=== PATIENT | male | born 1985 | race Two or more races ===

== ENCOUNTER 2016-05-15 12:11 | Emergency (ER) | payer MEDICAID ==
--- NOTE | 2016-05-15 12:17 | ER Document Report ---
ED Medical Screen (RME) - General Stated Complaint: HEADACHE Time seen by provider: 12:27 Mode of Arrival: Medic Information source: Patient Notes: 30-year-old male found on the side of the road with a headache for 4 days brought in by EMS. Patient complains of nausea vomiting for 4 days 3 times today. I have greeted and performed a rapid initial assessment of this patient. A comprehensive ED assessment and evaluation of the patient, analysis of test results and completion of medical decision making process will be conducted by an additional ED providers. TRAVEL OUTSIDE OF THE [place] IN LAST 30 DAYS: No - Related Data Allergies/Adverse Reactions: No Known Allergies Allergy (Verified 08/18/14 14:53) Past Medical History Pulmonary Medical History: Reports: Hx Bronchitis Psychiatric Medical History: Reports: Hx Bipolar Disorder, Hx Depression, Hx Schizophrenia - Immunizations Hx Diphtheria, Pertussis, Tetanus Vaccination: Yes - 2009
[2016-05-15] MEDS ORDERED: ACETAMINOPHEN 325 MG TABLET PO ONE (12:29)
[2016-05-15] MEDS ORDERED: ONDANSETRON 4 MG TAB.RAPDIS PO ONE (12:29)
[2016-05-15] MEDS ORDERED: DIPHENHYDRAMINE HCL 50 MG/ML VIAL IV ONE (14:49)
[2016-05-15] MEDS ORDERED: NORMAL SALINE 1000 ML 1,000 ML IV ONE (14:49)
[2016-05-15] MEDS ORDERED: KETOROLAC TROMETHAMINE INJ/PF 30 MG/1 ML SDV IV ONE (14:50)
--- NOTE | 2016-05-15 15:46 | ER Document Report ---
ED General - General Chief Complaint: Headache Stated Complaint: HEADACHE Time seen by provider: 15:45 Mode of Arrival: Medic Notes: This is a 30-year-old male that presents today with a frontal bilateral headache. Patient stated that it started at 1130 this morning. He vomited 3 times. Denies hematemesis. He decided to call EMS. Constant 6 out of 10 with radiation to the neck. Denies nausea fever light sensitivity or loss of consciousness. He states that he has not had symptoms like this in the past. TRAVEL OUTSIDE OF THE [place] IN LAST 30 DAYS: No - Related Data Allergies/Adverse Reactions: No Known Allergies Allergy (Verified 05/15/16 12:29) Past Medical History - General Information source: Patient - Social History Smoking Status: Current Every Day Smoker Chew tobacco use (# tins/day): No Frequency of alcohol use: None Drug Abuse: None Family History: Reviewed & Not Pertinent Patient has suicidal ideation: No Patient has homicidal ideation: No Pulmonary Medical History: Reports: Hx Bronchitis Renal/ Medical History: Denies: Hx Peritoneal Dialysis Psychiatric Medical History: Reports: Hx Bipolar Disorder, Hx Depression, Hx Schizophrenia - Immunizations Hx Diphtheria, Pertussis, Tetanus Vaccination: Yes - 2009 Review of Systems - Review of Systems Constitutional: No symptoms reported. denies: Chills, Fever EENT: No symptoms reported. denies: Blurred vision, Double vision, Vertigo Cardiovascular: No symptoms reported. denies: Chest pain Respiratory: No symptoms reported Gastrointestinal: No symptoms reported. denies: Abdominal pain Genitourinary: No symptoms reported Male Genitourinary: No symptoms reported Musculoskeletal: No symptoms reported Skin: No symptoms reported Hematologic/Lymphatic: No symptoms reported Neurological/Psychological: See HPI, Headaches Physical Exam - Vital signs Vitals: Temp Pulse Resp BP Pulse Ox 98.2 F 73 16 117/81 100 05/15/16 12:26 05/15/16 12:26 05/15/16 12:26 05/15/16 12:26 05/15/16 12:26 - General General appearance: Appears well, Alert In distress: None - HEENT Head: Normocephalic, Atraumatic Eyes: Normal Conjunctiva: Normal - Respiratory Respiratory status: No respiratory distress Breath sounds: Normal. No: Rales, Rhonchi, Stridor, Wheezing - Cardiovascular Rhythm: Regular Heart sounds: Normal auscultation - Abdominal Bowel sounds: Normal Tenderness: Nontender - Extremities General upper extremity: Normal inspection, Nontender, Normal strength, Normal temperature General lower extremity: Normal inspection, Nontender, Normal strength, Normal temperature - Neurological Cognition: Normal. No: Confused - Psychological Associated symptoms: Normal affect, Normal mood - Skin Skin Temperature: Warm Skin Moisture: Dry Skin Color: Normal Course - Re-evaluation Re-evalutation: 05/15/16 17:02 Patient states that the medication has helped. Radiograph results was shared with the patient. He was advised to follow-up with primary care physician as soon as possible. He was given multiple opportunities to ask questions. He was advised to return to the emergency department if symptoms worsen such as vomiting, fever, loss of consciousness, or any concerning findings or symptoms. - Vital Signs Vital signs: Temp Pulse Resp BP Pulse Ox 98.4 F 72 16 114/72 100 05/15/16 17:29 05/15/16 17:29 05/15/16 17:29 05/15/16 17:29 05/15/16 17:29 Discharge - Discharge Clinical Impression: Headache Qualifiers: Headache type: tension-type Headache chronicity pattern: acute headache Intractability: not intractable Qualified Code(s): G44.209 - Tension-type headache, unspecified, not intractable Condition: Stable Disposition: HOME, SELF-CARE Instructions: Antinausea Medication ([facility]) Additional Instructions: Return to the emergency department if symptoms worsen such as loss of consciousness, changes in vision, fever, loss of motor function, or any concerning findings or symptoms. Follow-up with primary care physician as soon as possible. Headache The physician does not feel that the headache you are experiencing has a serious underlying cause. Most headaches are due to emotional stress, with resultant muscle tension (tension headache). Occasionally, headaches are secondary to changes in the blood vessels of the scalp (vascular headache and migraine headache). Sometimes, a headache is the first symptom of another developing illness, such as a viral infection. You have no evidence of stroke, bleeding, meningitis, or other serious cause of your headache. The treatment of headaches varies with the severity and cause of the pain. Not all headaches need pain shots. In fact, there is evidence that using narcotics for headaches may make them worse in the long run. The physician will determine the therapy that's in your best interest. If you develop a fever, if the headache is different from any you've previously experienced, or if the headache progressively worsens, then call your physician at once or go to the emergency room. Prescriptions: Ondansetron HCl [Zofran 4 mg Tablet] 1 - 2 tab PO Q4H PRN #10 tablet PRN Reason: Referrals: SAMANTHA BAIN MD [Primary Care Provider] - Follow up as needed
[2016-05-15 17:54] VITALS: BP 114/72
== END 2016-05-15 17:30 | disposition home or self-care (01) ==
LOC: ER 12:11
DX: G44.209 Tension-type headache, unspecified, not intractable (principal); F17.200 Nicotine dependence, unspecified, uncomplicated
CPT/HCPCS: 99284; 96374; 96375; 70450; J3490; J1200; S0119; J1885

== ENCOUNTER 2016-06-22 13:49 | Emergency (ER) | payer MEDICAID, OTHER ==
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
[2016-06-22 15:50] LABS: ABSOLUTE EOSINOPHILS # (AUTO) 0.1 10^3/uL (0.0-0.6); ABSOLUTE LYMPHOCYTES (AUTO) 1.4 10^3/uL (0.5-4.7); ABSOLUTE MONOCYTES (AUTO) 0.4 10^3/uL (0.1-1.4); ABSOLUTE NEUT (AUTO) 6.3 10^3/uL (1.7-8.2); BASOPHILS % (AUTO) 0.3 % (0-2); HEMATOCRIT 45.3 % (37.9-51.0); HEMOGLOBIN 15.2 g/dL (13.5-17.0); HGB HCT DIFFERENCE 0.3; LYMPHOCYTES % (AUTO) 17.5 % (13-45); MEAN CORPUSCULAR HEMOGLOBIN 30.9 pg (27.0-33.4); MEAN CORPUSCULAR HGB CONC 33.6 g/dL (32.0-36.0); MEAN CORPUSCULAR VOLUME 92 fl (80-97); MONOCYTES % (AUTO) 4.8 % (3-13); RED BLOOD COUNT 4.92 10^6/uL (4.35-5.55); RED CELL DISTRIBUTION WIDTH 13.6 % (11.5-14.0); SEGMENTED NEUTROPHILS % (AUTO) 76.4 % (42-78); WHITE BLOOD COUNT 8.3 10^3/uL (4.0-10.5)
[2016-06-22 16:09] LABS: APPEARANCE,URINE SLIGHTLY-CLOUDY; BILIRUBIN,URINE NEGATIVE (NEGATIVE); GLUCOSE, URINE NEGATIVE (NEGATIVE); KETONES,URINE NEGATIVE (NEGATIVE); LEUKOCYTE ESTERASE,URINE NEGATIVE (NEGATIVE); NITRITE,URINE NEGATIVE (NEGATIVE); PROTEIN,URINE NEGATIVE (NEGATIVE); URINE SPECIFIC GRAVITY 1.006
[2016-06-22 16:10] LABS: ALANINE AMINOTRANSFERASE 26 U/L (21-72); ALBUMIN 4.2 g/dL (3.5-5.0); ALKALINE PHOSPHATASE 79 U/L (38-126); ANION GAP 10 (5-19); ASPARTATE AMINO TRANSFERASE 21 U/L (17-59); BLOOD UREA NITROGEN 5 mg/dL (7-20); CALCIUM 9.9 mg/dL (8.4-10.2); CARBON DIOXIDE 28 mmol/L (22-30); CHLORIDE 103 mmol/L (98-107); CREATININE RESULT 0.92 mg/dL (0.52-1.25); GLUCOSE 108 mg/dL (75-110); POTASSIUM 3.7 mmol/L (3.6-5.0); SODIUM 141.1 mmol/L (137-145)
[2016-06-22 16:11] LABS: ALCOHOL < 10 mg/dL (NONE DETECTED)
[2016-06-22 16:15] LABS: URINE BARBITURATES SCREEN NEGATIVE; URINE METHADONE SCREEN NEGATIVE; URINE OPIATES LOW NEGATIVE; URINE PHENCYCLIDINE SCREEN NEGATIVE
[2016-06-22 18:55] VITALS: BP 128/82
--- NOTE | 2016-06-22 20:49 | EKG REPORT ---
SEVERITY:- OTHERWISE NORMAL ECG - SINUS RHYTHM BORDERLINE RIGHT AXIS DEVIATION : Confirmed by: Cinda Breen 22-Jun-2016 20:49:01
== END 2016-06-22 18:55 ==
LOC: ER 13:49
DX: R45.851 Suicidal ideations (principal); F32.9 Major depressive disorder, single episode, unspecified; Z91.5 Personal history of self-harm
CPT/HCPCS: 36415; 80053; 80307; 81001; 85025; 93005; 93010; 99285

== ENCOUNTER 2017-06-14 14:07 | Emergency (ER) | payer MEDICAID ==
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
[2017-06-14 17:16] VITALS: BP 120/70
== END 2017-06-14 17:08 | disposition home or self-care (01) ==
LOC: ER 14:07
DX: S00.11XA Contusion of right eyelid and periocular area, initial encounter (principal); H57.11 Ocular pain, right eye; Y04.2XXA Assault by strike against or bumped into by another person, initial encounter; Y92.512 Supermarket, store or market as the place of occurrence of the external cause; F17.200 Nicotine dependence, unspecified, uncomplicated
CPT/HCPCS: 70450; 70486; 99284

== ENCOUNTER 2017-07-08 19:03 | Emergency (ER) | payer MEDICAID ==
--- NOTE | 2017-07-08 19:58 | ER Document Report ---
ED General - General Chief Complaint: Suicidal Ideation Stated Complaint: SUICIDAL THOUGHTS Time Seen by Provider: 07/08/17 19:39 Mode of Arrival: Ambulatory Information source: Patient Notes: This is a 31-year-old man with a history of schizophrenia who presents to the emergency room with hearing voices and thoughts of wanting to hang himself. The patient reports living alone. He denies any access to guns. He denies any overdose with medicines. He is followed at [facility] ("Dr. Marie"). TRAVEL OUTSIDE OF THE [place] IN LAST 30 DAYS: No - HPI Onset: Yesterday Onset/Duration: Gradual Quality of pain: No pain Severity: None Pain Level: Denies Associated symptoms: None Exacerbated by: Denies Relieved by: Denies Similar symptoms previously: No Recently seen / treated by doctor: No - Related Data Allergies/Adverse Reactions: No Known Allergies Allergy (Verified 06/14/17 14:31) Past Medical History - General Information source: Patient - Social History Smoking Status: Current Every Day Smoker Cigarette use (# per day): Yes - 2 packs per day Chew tobacco use (# tins/day): No Frequency of alcohol use: Occasional Drug Abuse: None Lives with: Family Family History: Reviewed & Not Pertinent Patient has suicidal ideation: Yes Patient has homicidal ideation: No Pulmonary Medical History: Reports: Hx Bronchitis Renal/ Medical History: Denies: Hx Peritoneal Dialysis Psychiatric Medical History: Reports: Hx Bipolar Disorder, Hx Depression, Hx Schizophrenia Surgical Hx: Negative - Immunizations Hx Diphtheria, Pertussis, Tetanus Vaccination: Yes - 2009 Review of Systems - Review of Systems Constitutional: denies: Chills, Fever EENT: No symptoms reported Cardiovascular: No symptoms reported Respiratory: No symptoms reported Gastrointestinal: No symptoms reported Genitourinary: No symptoms reported Male Genitourinary: No symptoms reported Musculoskeletal: No symptoms reported Skin: No symptoms reported Hematologic/Lymphatic: No symptoms reported Neurological/Psychological: See HPI Physical Exam - Vital signs Notes: Physical exam: GENERAL: 31-year-old man, alert and oriented 3, no acute distress. HEAD: Atraumatic, normocephalic. EYES: Pupils equal round and reactive to light, extraocular movements intact, sclera anicteric, conjunctiva are normal. ENT: TMs normal, nares patent, oropharynx clear without exudates. Moist mucous membranes. NECK: Normal range of motion, supple without obvious mass or JVD. LUNGS: Breath sounds clear to auscultation bilaterally and equal. No wheezes rales or rhonchi. HEART: Regular rate and rhythm without murmurs, rubs or gallops. ABDOMEN: Soft, normoactive bowel sounds. No tenderness to palpation. No guarding, no rebound. No masses appreciated. EXTREMITIES: Normal range of motion, no pitting or edema. No clubbing or cyanosis. NEUROLOGICAL: Cranial nerves II through XII grossly intact. Normal speech, moving all extremities. PSYCH: Patient appears depressed. There is no obvious hallucinations at this point. He does state he feels like he wants to hang himself. His affect does appear labile. SKIN: Warm, Dry, normal turgor, no rashes or lesions noted. Course - Laboratory Result Diagrams: 07/08/17 20:01 07/08/17 20:01 Laboratory results interpreted by me: 07/08/17 07/08/17 20:01 20:45 AST 13 L Urine Urobilinogen 4.0 H Salicylates < 1.0 L Acetaminophen < 10 L - EKG Interpretation by Me Rate: Normal Rhythm: NSR - EKG shows normal sinus rhythm with a ventricular rate of 70, some benign early repolarization, no acute ST-T wave changes. No changes when compared to an EKG from June 2016. Discharge - Discharge Clinical Impression: Suicidal ideation Condition: Stable Disposition: PSYCH HOSP/UNIT
[2017-07-08] MEDS ORDERED: BENZTROPINE MESYLATE 1 MG TABLET PO SCH (20:00)
[2017-07-08] MEDS ORDERED: ESCITALOPRAM OXALATE 10 MG TABLET PO SCH ×2 (20:15→22:00)
[2017-07-08 20:22] LABS: ABSOLUTE EOSINOPHILS # (AUTO) 0.1 10^3/uL (0.0-0.6); ABSOLUTE LYMPHOCYTES (AUTO) 2.5 10^3/uL (0.5-4.7); ABSOLUTE MONOCYTES (AUTO) 0.4 10^3/uL (0.1-1.4); ABSOLUTE NEUT (AUTO) 3.8 10^3/uL (1.7-8.2); BASOPHILS % (AUTO) 0.5 % (0-2); EOSINOPHILS % (AUTO) 1.1 % (0-6); HEMATOCRIT 47.1 % (37.9-51.0); HEMOGLOBIN 15.9 g/dL (13.5-17.0); LYMPHOCYTES % (AUTO) 36.6 % (13-45); MEAN CORPUSCULAR HEMOGLOBIN 30.8 pg (27.0-33.4); MEAN CORPUSCULAR HGB CONC 33.8 g/dL (32.0-36.0); MEAN CORPUSCULAR VOLUME 91 fl (80-97); MONOCYTES % (AUTO) 5.7 % (3-13); PLATELET COUNT 211 10^3/uL (150-450); RED BLOOD COUNT 5.16 10^6/uL (4.35-5.55); RED CELL DISTRIBUTION WIDTH 13.1 % (11.5-14.0); SEGMENTED NEUTROPHILS % (AUTO) 56.1 % (42-78); TOTAL CELLS COUNTED % (AUTO) 100 %; WHITE BLOOD COUNT 6.8 10^3/uL (4.0-10.5)
[2017-07-08 20:43] LABS: ACETAMINOPHEN < 10 ug/mL (10-30); ALANINE AMINOTRANSFERASE 25 U/L (21-72); ALBUMIN 4.3 g/dL (3.5-5.0); ALCOHOL < 10 mg/dL (NONE DETECTED); ALKALINE PHOSPHATASE 95 U/L (38-126); ANION GAP 11 (5-19); ASPARTATE AMINO TRANSFERASE 13 U/L (17-59); BILIRUBIN,DIRECT 0.2 mg/dL (0.0-0.4); BILIRUBIN,TOTAL 1.3 mg/dL (0.2-1.3); BLOOD UREA NITROGEN 9 mg/dL (7-20); CARBON DIOXIDE 25 mmol/L (22-30); CHLORIDE 105 mmol/L (98-107); GLUCOSE 94 mg/dL (75-110); POTASSIUM 3.9 mmol/L (3.6-5.0); SALICYLATE < 1.0 mg/dL (2.0-20.0); TOTAL PROTEIN 6.8 g/dL (6.3-8.2)
[2017-07-08 21:21] LABS: APPEARANCE,URINE CLEAR; BILIRUBIN,URINE NEGATIVE (NEGATIVE); COLOR,URINE YELLOW; GLUCOSE, URINE NEGATIVE (NEGATIVE); KETONES,URINE NEGATIVE (NEGATIVE); LEUKOCYTE ESTERASE,URINE NEGATIVE (NEGATIVE); NITRITE,URINE NEGATIVE (NEGATIVE); PROTEIN,URINE NEGATIVE (NEGATIVE); URINE SPECIFIC GRAVITY 1.015
[2017-07-08 21:34] LABS: URINE AMPHETAMINES SCREEN NEGATIVE; URINE BARBITURATES SCREEN NEGATIVE; URINE BENZODIAZEPINES SCREEN NEGATIVE; URINE COCAINE SCREEN NEGATIVE; URINE MARIJUANA (THC) SCREEN NEGATIVE; URINE METHADONE SCREEN NEGATIVE; URINE PHENCYCLIDINE SCREEN NEGATIVE
[2017-07-08] MEDS ORDERED: TRAZODONE HCL 50 MG TABLET PO SCH (22:00)
--- NOTE | 2017-07-08 22:02 | EKG REPORT ---
SEVERITY:- OTHERWISE NORMAL ECG - SINUS RHYTHM S1,S2,S3 PATTERN ST ELEV, PROBABLE NORMAL EARLY REPOL PATTERN : Confirmed by: Cinda Breen 08-Jul-2017 22:01:14
[2017-07-08] MEDS: BENZTROPINE MESYLATE 1 MG TABLET PO SCH (23:25)
[2017-07-09] MEDS: OLANZAPINE 5 MG TABLET PO SCH ×3 (09:50→18:24)
[2017-07-09] MEDS: BENZTROPINE MESYLATE 1 MG TABLET PO SCH (09:50)
--- NOTE | 2017-07-09 13:10 | PSYCHOLOGICAL NOTE ---
Psych Note - Psych Note Psych Note: Reason for Consult: suicidal ideation Pt arrived via EMS. Pt a/o x4 with c/o feeling suicidal. Pt states that he has a plan to hang himself. Pt states that he started feeling this way after leaving the day program today. Pt states that he is stressed, depressed, and feels discouraged. Pt ask EMS if they had a string so he could hang himself. Patient disclosed he was having thoughts of suicidal yesterday and disclosed he is still having them. He disclosed he had a plan to hang himself. He continued to disclose he has had thought "a long time..for like 1-2 years." he disclosed he has been feeling discouraged, stressed, and depressed; "I get tired of people telling me what to do." He stated he participates in a day program through [facility] [place]. He continued to disclose "I need to go to the mental hospital because I know I will go it again." Patient confirms he did not do any self harm gestures. He confirms he has been taking his medication but feels it is not working. Patient is calm, cooperative, alert, coherent and oriented x4. Patient is very respectful and has good grooming standards. Patient is euthymic with flat affect. Linear conversation; rate, rhythm and articulation are WNL. Intelligence is estimated at below average. Patient does report hearing voices but does not present to be responding to internal stimuli. Patient endorses current passive suicidal ideations ie no means or intent. Patient denied homicidal ideation. Insight is poor. Judgment and impulse control are fair. Behavior health team contacted patient's pharmacy, [facility], patient is currently prescribed Zoloft 100 mg daily, Zyprexa 20 mg twice daily, Cogentin 2 mg twice daily, and trazodone 300 mg nightly. He is a patient of [facility]. Diagnosis: 296.80 (F31.9) Unspecified Bipolar and Related Disorder by history Recommendation: Patient is considered psychologically cleared. Patient does not meet IVC criteria per [place] GS 122C. Patient disclosed plan after sitting calmly for over an hour with EMS while awaiting Mobile Crisis to arrive. Patient then disclosed a plan requesting a "string" to hang himself; a string is not a feasible plan of suicide. Patient has a long history of mental health disorders however receives services from both his day program, [facility]. Patient is medication compliant and receives outpatient mental health services from [facility]. Patient is currently at his baseline which does involve hearing voices and having passive suicidal ideations. Medications changes or acute hospitalization will not change this. Patient was encouraged to work on his coping skills and call his supports or mobile crisis number when he is feeling scared or sad. Patient was given crisis numbers to keep in his wallet. I consulted with Dr. Cornejo about the care and management of this patient and informed the ED physicians about the following recommendations. I consulted with Dr. Cornejo about the care and management of this patient and informed the ED physicians about the following recommendations.
--- NOTE | 2017-07-09 16:23 | ER Document Report ---
Doctor's Note Notes: 07/09/17 16:21 Physical examination reveals a calm male who is well groomed, speaks clearly, in no respiratory distress moving all 4 extremities spontaneously. During examination patient is quite calm, only passive suicidal ideation, his plan is to hang himself using a piece of string which is not a feasible suicide attempt or plan. Patient has not actually attempted despite feeling suicidal for the past 2-1/2 years since he was last discharged from an inpatient psychiatric facility. I find patient to be very low risk at this time and our behavioral health team agrees with this. Patient has multiple resources in the community, will be discharged to home. No medication adjustments are needed at this time.
[2017-07-09 18:48] VITALS: BP 124/56
== END 2017-07-09 18:48 | disposition home or self-care (01) ==
LOC: ER 19:03
DX: F31.9 Bipolar disorder, unspecified (principal); R45.851 Suicidal ideations; F20.9 Schizophrenia, unspecified; F17.210 Nicotine dependence, cigarettes, uncomplicated
CPT/HCPCS: 93005; 99285; 36415; 80307 ×4; 85025; 80053; 81001; 93010; J3490 ×4

== ENCOUNTER 2018-04-29 15:56 | Emergency (ER) | payer OTHER ==
--- NOTE | 2018-04-29 16:47 | ER Document Report ---
ED General - General Stated Complaint: PSYCH EVAL Time Seen by Provider: 04/29/18 16:17 Mode of Arrival: Medic Information source: Patient, [facility] Records Notes: Tremaine Bauer is a 32-year-old male presenting with suicidal ideation. Past medical history of schizoaffective disorder bipolar type. He arrived at the ED by ambulance after calling 911 himself. Patient is well-known to the department and the psychiatry team. Today he attempted to cut himself with a butter knife and also recently attempted to hang himself with shoelaces. He receives he claims that he hears voices in the room telling him to hurt himself and others and also sees bodies in the room. He receives care from [facility] and therapy from [facility] once a week. He recently started living alone after living in a correction. He admits that it can be lonely by he enjoys living alone. He claims that he has a lot of stress in his life without a job and without a car. He has a 11-year-old daughter who lives with his mom. Patient denies headache, visual changes, chest pain, shortness of breath, abdominal pain TRAVEL OUTSIDE OF THE [place] IN LAST 30 DAYS: No - HPI Onset: Other Onset/Duration: Persistent Quality of pain: No pain Severity: None Associated symptoms: None Exacerbated by: Denies Relieved by: Denies Similar symptoms previously: Yes Recently seen / treated by doctor: Yes - Related Data Allergies/Adverse Reactions: No Known Allergies Allergy (Verified 06/14/17 14:31) Past Medical History - General Information source: Patient, [facility] Records - Social History Smoking Status: Current Every Day Smoker Cigarette use (# per day): Yes - 2ppd Smoking Education Provided: Yes - Smoking cessation counseling was provided for 4 minutes at the bedside Frequency of alcohol use: Occasional Drug Abuse: None Lives with: Alone Family History: Reviewed & Not Pertinent Patient has suicidal ideation: Yes Patient has homicidal ideation: No Pulmonary Medical History: Reports: Hx Bronchitis Renal/ Medical History: Denies: Hx Peritoneal Dialysis Psychiatric Medical History: Reports: Hx Bipolar Disorder, Hx Depression, Hx Schizophrenia - Immunizations Hx Diphtheria, Pertussis, Tetanus Vaccination: Yes - 2009 Review of Systems - Review of Systems Notes: REVIEW OF SYSTEMS: CONSTITUTIONAL : Denies fever, chills, or sweats. Denies recent illness. Denies weight loss, recent hospitalizations. EENT: Denies visual changes, eye pain. Denies sore throat, oral lesions, difficulty swallowing. CARDIOVASCULAR: Denies chest pain. Denies palpitations. Denies lower extremity edema. RESPIRATORY: Denies cough. Denies shortness of breath, wheezing. GASTROINTESTINAL: Denies abdominal pain or distention. Denies nausea, vomiting, or diarrhea. Denies blood in vomitus, stools, or per rectum. Denies black, tarry stools. Denies constipation. GENITOURINARY: Denies difficulty urinating, painful urination, frequency, blood in urine, testicular pain or penile discharge. MUSCULOSKELETAL: Denies back or neck pain or stiffness. Denies joint pain or swelling. SKIN: Denies rash, lesions or sores. HEMATOLOGIC : Denies easy bruising or bleeding. LYMPHATIC: Denies swollen glands. NEUROLOGICAL: Denies confusion or altered mental status. Denies loss of consciousness. Denies dizziness or lightheadedness. Denies headache. Denies weakness or paralysis. Denies problems difficulty with ambulation, slurred speech. Denies sensory loss, numbness, or tingling. Denies seizures. PSYCHIATRIC: Denies anxiety or stress. Denies depression, homicidal ideation. Physical Exam - Notes Notes: PHYSICAL EXAMINATION: GENERAL: Well-appearing, well-nourished and in no acute distress. HEAD: Atraumatic, normocephalic. EYES: Pupils equal round and reactive to light, extraocular movements intact, sclera anicteric, conjunctiva are normal. ENT: Nares patent, oropharynx clear without exudates. Moist mucous membranes. NECK: Normal range of motion, supple without lymphadenopathy LUNGS: Breath sounds clear to auscultation bilaterally and equal. No wheezes rales or rhonchi. HEART: Regular rate and rhythm without murmurs ABDOMEN: Soft, nontender, nondistended abdomen. No guarding, no rebound. No masses appreciated. Musculoskeletal: Normal range of motion, no pitting or edema. No cyanosis. NEUROLOGICAL: Cranial nerves grossly intact. Normal speech, normal gait. Normal sensory, motor exams PSYCH: Admits to suicidal ideation, visual and auditory hallucinations. Denies homicidal ideation. SKIN: Warm, Dry, normal turgor, no rashes or lesions noted. Course - Re-evaluation Re-evalutation: 04/29/18 18:55 32-year-old male with schizoaffective bipolar type presents with fleeting suicid al ideation. Patient is well-known to the department. Has been evaluated by our psychology team and deemed safe for discharge. Patient has follow-up with psychiatry. No medication recommendations given. Patient was evaluated and treated as appropriate for the patient's presenting symptoms and complaint, with consideration of any critical or life threatening conditions that may be associated with their obtained history and exam as noted above. All results were discussed with patient and... Patient provided the opportunity to ask questions, and express concerns. Patient was educated on treatments based on their presumed diagnosis as noted above. At this time we will discharge the patient with return precautions and follow-up recommendations. Verbal discharge instructions given a the bedside. Medication warnings reviewed. Patient is in agreement with this plan and has verbalized understanding of return precautions. After careful consideration I feel that that patient can be safely discharged from the emergency department, they were advised to followup with a primary care physician in 2-3 days. Dictation on this chart was performed using voice recognition software and may result in unintended grammatical, spelling, syntax or errors. Discharge - Discharge Clinical Impression: Schizoaffective disorder, bipolar type, Passive suicidal ideations Condition: Good Disposition: HOME, SELF-CARE Instructions: Bipolar Disorder ([facility]), Suicidal Ideation ([facility]) Additional Instructions: Please continue to follow-up with Dr. Bae at [facility] for further medication. Please continue to follow with [facility] for therapy. Please continue your current medication regimen.
== END 2018-04-29 17:04 | disposition home or self-care (01) ==
LOC: ER 15:56
DX: F25.0 Schizoaffective disorder, bipolar type (principal); R45.851 Suicidal ideations; F17.210 Nicotine dependence, cigarettes, uncomplicated; Z71.6 Tobacco abuse counseling
CPT/HCPCS: 99284; 99406

== ENCOUNTER 2018-09-13 20:19 | Emergency (ER) | payer MEDICAID, OTHER ==
[2018-09-13 23:05] LABS: ABSOLUTE EOSINOPHILS # (AUTO) 0.1 10^3/uL (0.0-0.6); ABSOLUTE LYMPHOCYTES (AUTO) 2.3 10^3/uL (0.5-4.7); ABSOLUTE MONOCYTES (AUTO) 0.4 10^3/uL (0.1-1.4); ABSOLUTE NEUT (AUTO) 4.3 10^3/uL (1.7-8.2); BASOPHILS % (AUTO) 0.7 % (0-2); EOSINOPHILS % (AUTO) 1.2 % (0-6); HEMATOCRIT 42.7 % (37.9-51.0); HEMOGLOBIN 14.6 g/dL (13.5-17.0); LYMPHOCYTES % (AUTO) 32.7 % (13-45); MEAN CORPUSCULAR HEMOGLOBIN 30.3 pg (27.0-33.4); MEAN CORPUSCULAR HGB CONC 34.2 g/dL (32.0-36.0); MEAN CORPUSCULAR VOLUME 89 fl (80-97); MONOCYTES % (AUTO) 5.3 % (3-13); PLATELET COUNT 195 10^3/uL (150-450); RED BLOOD COUNT 4.82 10^6/uL (4.35-5.55); RED CELL DISTRIBUTION WIDTH 14.3 % (11.5-14.0); SEGMENTED NEUTROPHILS % (AUTO) 60.1 % (42-78); TOTAL CELLS COUNTED % (AUTO) 100 %; WHITE BLOOD COUNT 7.1 10^3/uL (4.0-10.5)
[2018-09-13 23:17] LABS: AMORPHOUS SEDIMENT,URINE TRACE /HPF; APPEARANCE,URINE CLOUDY; BILIRUBIN,URINE NEGATIVE (NEGATIVE); COLOR,URINE YELLOW; GLUCOSE, URINE NEGATIVE (NEGATIVE); KETONES,URINE NEGATIVE (NEGATIVE); LEUKOCYTE ESTERASE,URINE NEGATIVE (NEGATIVE); NITRITE,URINE NEGATIVE (NEGATIVE); PROTEIN,URINE NEGATIVE (NEGATIVE); URINE SPECIFIC GRAVITY 1.011
[2018-09-13 23:24] LABS: URINE AMPHETAMINES SCREEN NEGATIVE; URINE BENZODIAZEPINES SCREEN NEGATIVE; URINE COCAINE SCREEN NEGATIVE; URINE MARIJUANA (THC) SCREEN UNCONFIRMED POSITIVE; URINE METHADONE SCREEN NEGATIVE; URINE PHENCYCLIDINE SCREEN NEGATIVE
[2018-09-13 23:25] LABS: URINE BARBITURATES SCREEN NEGATIVE
[2018-09-13 23:26] LABS: ALANINE AMINOTRANSFERASE 18 U/L (21-72); ALBUMIN 4.2 g/dL (3.5-5.0); ALKALINE PHOSPHATASE 66 U/L (38-126); ANION GAP 8 (5-19); ASPARTATE AMINO TRANSFERASE 13 U/L (17-59); BILIRUBIN,DIRECT 0.2 mg/dL (0.0-0.4); BILIRUBIN,TOTAL 0.5 mg/dL (0.2-1.3); BLOOD UREA NITROGEN 5 mg/dL (7-20); CALCIUM 9.8 mg/dL (8.4-10.2); CARBON DIOXIDE 28 mmol/L (22-30); CHLORIDE 105 mmol/L (98-107); GLUCOSE 117 mg/dL (75-110); POTASSIUM 3.5 mmol/L (3.6-5.0); SODIUM 141.2 mmol/L (137-145); TOTAL PROTEIN 6.8 g/dL (6.3-8.2)
[2018-09-13 23:33] LABS: ACETAMINOPHEN < 10 ug/mL (10-30); ALCOHOL < 10 mg/dL (NONE DETECTED); SALICYLATE < 1.0 mg/dL (2.0-20.0)
--- NOTE | 2018-09-14 00:20 | ER Document Report ---
Addendum entered and electronically signed by JOHNY VIVEROS DO 09/14/18 15:02: Discharge - Discharge Clinical Impression: Suicidal ideation, Self-injurious behavior Condition: Stable Disposition: HOME, SELF-CARE Additional Instructions: You have been evaluated by both medical and behavioral health providers while in the emergency department. You have been cleared from both acute medical and psychiatric services. It is felt your self injury to you forearm with a butter knife was a negative coping strategy to being upset about your daughter's custody. You should inform you medication provider and therapist at [facility] about increases in negative thoughts and overwhelmed about daughter's custody or any other issue. DEPRESSION: Your evaluation reveals that you have mental depression. While symptoms may be vague, they often include disturbance of sleep, fatigue, loss of appetite, and general loss of interest in life. While depression may be a side effect of drugs, or a reaction to a major change in your life, many cases have no known cause. If depression is acute, and related to a major loss in your life, you can expect it to clear completely with time. If you have been depressed a long time, are prone to repeated bouts of depression or low mood, or have been thinki ng of suicide, get help. Depression can be treated with anti-depressant medication and counselling. Long-term depression will often take a few weeks to clear, even with appropriate medication. Follow-up care is important. SUICIDAL IDEATION: Suicidal ideation is a common medical term for thoughts about suicide, which may be as detailed as a formulated plan, without the suicidal act itself. Although most people who undergo suicidal ideation do not commit suicide, some go on to make suicide attempts. The range of suicidal ideation varies greatly from fleeting to detailed planning, role playing, and unsuccessful attempts. While thoughts about suicide are common, most people do not carry out serious actions to commit suicide. Based upon your evaluation and discussion with you, we do not believe you are currently at risk to act upon your thoughts of suicide. You have agreed to return to the Emergency Department, at any time, if you feel inclined to act upon your suicidal thoughts. Bipolar Disorder (combination of bipolar and schizophrenia symptoms is Schi zoaffective) Bipolar disorder is also called manic-depressive disorder. Depression al ternates with brain hyperactivity called jewell. Each phase lasts from several days to a few weeks. We don't know exactly what causes bipolar disorder, but it's treatable. During the "manic phase," you may feel elated and energetic. You may have racing thoughts, rapid speech, increased activity, and grandiose ideas. During this time, you may not realize how poor your judgement is. Inappropriate spending, drug abuse, excessive alcohol use, marriage problems, and irresponsible sexual behavior are common during the manic phase. During the "depressive phase," you might feel depressed, guilty, worthless, fatigued, and unable to concentrate. You might have thoughts of suicide. Good treatments are available for bipolar disorder. Aguilita is a classic drug for bipolar disorder, and is still often useful. If the manic phase is very mild, an antidepressant alone can be prescribed. If the manic phase is very severe, an antipsychotic medicine (such as Haldol) may be needed. The treatment must be matched to your symptoms, so it's important to work closely with your psychiatric care provider. Contact your physician, the hospital emergency center, crisis line, or your counsellor if you are losing control or having self-destructive thoughts. Schizophrenia (combination of bipolar and schizophrenia symptoms is Schizoaffective) Schizophrenia is a chemical disorder that affects how the brain functions. The exact cause is unknown, but it tends to run in families. It is NOT caused by emotional trauma. Schizophrenia causes disordered thinking, including unusual beliefs and inability to "process" happenings around the patient. Patients with schizophrenia benefit greatly from medicine. These medicines are called antipsychotics. Never stop the medicine without the doctor's approval. Counselling may help the patient deal with his disease. Schizophrenics require a very ordered environment. Stresses and sudden changes may bring out symptoms. Drugs and alcohol abuse may become problems. Contact the counsellor or crisis line if there are thoughts of suicide or of harming others, or if you become aware of unusual thoughts or beliefs FOLLOW-UP CARE: You should follow up with your medication provider and therapist at [facility] within a week. Make sure they are aware of your self injury so they can best support you and make adjustments. You have been provided the [facility] Mobile Crisis number for crisis, talk therapy and linkage to other supports/services. If you experience worsening or a significant change in your symptoms, notify the physician immediately, utilize mobile crisis or return to the Emergency Department at any time for re- evaluation. Referrals: [facility] [Outside] - Follow up in 1 week [facility] [Outside] - Follow up as needed SAMANTHA BAIN MD [Primary Care Provider] - Follow up as needed Addendum entered and electronically signed by LAURA PEREZ LPC 09/14/18 11: 52: Discharge - Discharge Clinical Impression: Suicidal ideation, Self-injurious behavior Condition: Stable Disposition: HOME, SELF-CARE Additional Instructions: You have been evaluated by both medical and behavioral health providers while in the emergency department. You have been cleared from both acute medical and psychiatric services. It is felt your self injury to you forearm with a butter knife was a negative coping strategy to being upset about your daughter's custody. You should inform you medication provider and therapist at [facility] about increases in negative thoughts and overwhelmed about daughter's custody or any other issue. DEPRESSION: Your evaluation reveals that you have mental depression. While symptoms may be vague, they often include disturbance of sleep, fatigue, loss of appetite, and general loss of interest in life. While depression may be a side effect of drugs, or a reaction to a major change in your life, many cases have no known cause. If depression is acute, and related to a major loss in your life, you can expect it to clear completely with time. If you have been depressed a long time, are prone to repeated bouts of depression or low mood, or have been thinking of suicide, get help. Depression can be treated with anti-depressant medication and counselling. Long-term depression will often take a few weeks to clear, even with appropriate medication. Follow-up care is important. SUICIDAL IDEATION: Suicidal ideation is a common medical term for thoughts about suicide, which may be as detailed as a formulated plan, without the suicidal act itself. Although most people who undergo suicidal ideation do not commit suicide, some go on to make suicide attempts. The range of suicidal ideation varies greatly from fleeting to detailed planning, role playing, and unsuccessful attempts. While thoughts about suicide are common, most people do not carry out serious actions to commit suicide. Based upon your evaluation and discussion with you, we do not believe you are currently at risk to act upon your thoughts of suicide. You have agreed to return to the Emergency Department, at any time, if you feel inclined to act upon your suicidal thoughts. Bipolar Disorder (combination of bipolar and schizophrenia symptoms is Schizoaffective) Bipolar disorder is also called manic-depressive disorder. Depression alternates with brain hyperactivity called jewell. Each phase lasts from several days to a few weeks. We don't know exactly what causes bipolar disorder, but it's treatable. During the "manic phase," you may feel elated and energetic. You may have racing thoughts, rapid speech, increased activity, and grandiose ideas. During this time, you may not realize how poor your judgement is. Inappropriate spending, drug abuse, excessive alcohol use, marriage problems, and irresponsible sexual behavior are common during the manic phase. During the "depressive phase," you might feel depressed, guilty, worthless, fatigued, and unable to concentrate. You might have thoughts of suicide. Good treatments are available for bipolar disorder. Aguilita is a classic drug for bipolar disorder, and is still often useful. If the manic phase is very mild, an antidepressant alone can be prescribed. If the manic phase is very severe, an antipsychotic medicine (such as Haldol) may be needed. The treatment must be matched to your symptoms, so it's important to work closely with your ycpaatric care provider. Contact your physician, the hospital emergency center, crisis line, or your counsellor if you are losing control or having self-destructive thoughts. Schizophrenia (combination of bipolar and schizophrenia symptoms is Schizoaffective) Schizophrenia is a chemical disorder that affects how the brain functions. The exact cause is unknown, but it tends to run in families. It is NOT caused by emotional trauma. Schizophrenia causes disordered thinking, including unusual beliefs and inability to "process" happenings around the patient. Patients with schizophrenia benefit greatly from medicine. These medicines are called antipsychotics. Never stop the medicine without the doctor's approval. Counselling may help the patient deal with his disease. Schizophrenics require a very ordered environment. Stresses and sudden changes may bring out symptoms. Drugs and alcohol abuse may become problems. Contact the counsellor or crisis line if there are thoughts of suicide or of harming others, or if you become aware of unusual thoughts or beliefs FOLLOW-UP CARE: You should follow up with your medication provider and therapist at [facility] within a week. Make sure they are aware of your self injury so they can best support you and make adjustments. You have been provided the [facility] Mobile Crisis number for crisis, talk therapy and linkage to other supports/services. If you experience worsening or a significant change in your symptoms, notify the physician immediately, utilize mobile crisis or return to the Emergency Department at any time for re-evalu ation. Referrals: SAMANTHA BAIN MD [Primary Care Provider] - Follow up as needed [facility] [Outside] - Follow up as needed [facility] [Outside] - Follow up in 1 week Original Note: ED General - General Chief Complaint: Suicidal Ideation Stated Complaint: SUICIDAL IDEATION Time Seen by Provider: 09/13/18 22:44 Primary Care Provider: SAMANTHA BAIN MD [Primary Care Provider] - Follow up as needed Notes: Patient is a 33-year-old male with a past medical history of depression, anxiety, prior suicide attempts, presents by EMS with feeling suicidal. Patient states that his symptoms started several days ago, been worsening since onset. Nothing improves or worsens his symptoms. States he has been taking all medications as directed. States that he made a self injury attempt by scratching his left forearm with a knife although did not make any lacerations. States that he tried to harm himself in the past. Denies drug or alcohol use today. Denies acute medical concerns. TRAVEL OUTSIDE OF THE [place] IN LAST 30 DAYS: No - Related Data Allergies/Adverse Reactions: No Known Allergies Allergy (Verified 06/14/17 14:31) Past Medical History - General Information source: Patient - Social History Smoking Status: Current Every Day Smoker Chew tobacco use (# tins/day): No Frequency of alcohol use: None Drug Abuse: None Family History: Reviewed & Not Pertinent Patient has suicidal ideation: No Patient has homicidal ideation: No Pulmonary Medical History: Reports: Hx Bronchitis Renal/ Medical History: Denies: Hx Peritoneal Dialysis Psychiatric Medical History: Reports: Hx Bipolar Disorder, Hx Depression, Hx Schizophrenia - Immunizations Hx Diphtheria, Pertussis, Tetanus Vaccination: Yes - 2009 Review of Systems - Review of Systems Notes: Constitutional: Negative for fever. HENT: Negative for sore throat. Eyes: Negative for visual changes. Cardiovascular: Negative for chest pain. Respiratory: Negative for shortness of breath. Gastrointestinal: Negative for abdominal pain, vomiting or diarrhea. Genitourinary: Negative for dysuria. Musculoskeletal: Negative for back pain. Skin: Negative for rash. Neurological: Negative for headaches, weakness or numbness. 10 point ROS negative except as marked above and in HPI. Physical Exam - Vital signs Vitals: Temp Pulse BP Pulse Ox 98.7 F 87 148/96 H 97 09/13/18 20:29 09/13/18 20:29 09/13/18 20:29 09/13/18 20:29 Interpretation: Hypertensive Notes: PHYSICAL EXAMINATION: GENERAL: Well-appearing, well-nourished and in no acute distress. HEAD: Atraumatic, normocephalic. EYES: Pupils equal round and reactive to light, extraocular movements intact, sclera anicteric, conjunctiva are normal. ENT: nares patent, oropharynx clear without exudates. Moist mucous membranes. NECK: Normal range of motion, supple without lymphadenopathy LUNGS: Breath sounds clear to auscultation bilaterally and equal. No wheezes rales or rhonchi. HEART: Regular rate and rhythm without murmurs ABDOMEN: Soft, nontender, normoactive bowel sounds. No guarding, no rebound. No masses appreciated. EXTREMITIES: Normal range of motion, no pitting or edema. No cyanosis. NEUROLOGICAL: No focal neurological deficits. Moves all extremities spontaneously and on command. PSYCH: Normal mood, normal affect. SKIN: Warm, Dry, normal turgor, no rashes or lesions noted. Course - Re-evaluation Re-evalutation: 09/14/18 00:19 Patient presents complaining of suicidality stating that he self-inflicted lacerations to his left forearm although none are visible on physical. Patient is asking if he will be hospitalized immediately upon my assessment. He states that he has been feeling increasingly suicidal over the last several weeks. Medical screening examination is unremarkable. Medical screening labs unremarkable with exception of urine tox positive for marijuana. Patient is cleared for evaluation and disposition by [facility] in the morning. - Vital Signs Vital signs: Temp Pulse Resp BP Pulse Ox 98.7 F 87 148/96 H 97 09/13/18 20:29 09/13/18 20:29 09/13/18 20:29 09/13/18 20:29 - Laboratory Result Diagrams: 09/13/18 22:57 09/13/18 22:57 Laboratory results interpreted by me: 09/13/18 09/13/18 09/13/18 22:57 22:57 22:57 RDW 14.3 H Potassium 3.5 L BUN 5 L Glucose 117 H AST 13 L ALT 18 L Urine Urobilinogen 2.0 H Salicylates < 1.0 L Acetaminophen < 10 L - EKG Interpretation by Me Additional EKG results interpreted by me: 09/14/18 00:20 Sinus rhythm, rate 73, no ST elevations or depressions. QTC is 428 Discharge - Discharge Clinical Impression: Suicidal ideation, Self-injurious behavior Condition: Fair Disposition: PSYCH HOSP/UNIT Referrals: SAMANTHA BAIN MD [Primary Care Provider] - Follow up as needed
--- NOTE | 2018-09-14 15:02 | ER Document Report ---
Doctor's Note Notes: 09/14/18 15:00 Patient seen and examined. Evidently he was initially admitted for self-harm. He took a butter knife to his left upper extremity. I wanted to see the patient. At this point he denies suicidality. He does have follow-up. He currently is receiving outpatient therapy. Patient states he feels comfortable being discharged. He denies being a danger to himself or others. On physical exam this is a pleasant 33-year-old male, appears his stated age, no acute distress. He makes good eye contact, appropriate affect. Pupils are equal and round, reactive to light. Heart regular rate and rhythm, lungs are clear to oscillation bilaterally. Patient's left upper extremity yields very superficial linear abrasions consistent with self-administered injury. No active bleeding. Neurovascular intact distally. Plan will be to discharge the patient has per psychiatry. He is to continue his medications and outpatient therapy. Return to the ED with worsening.
[2018-09-14 15:32] VITALS: BP 117/87
--- NOTE | 2018-09-14 20:38 | PSYCHOLOGICAL NOTE ---
Psych Note - Psych Note Date seen by psych provider: 09/14/18 Psych Note: Diagnosis: Schizoaffective, Bipolar Type by History Impression/Plan: Patient is cleared from acute psychiatric services. Patient is well known to the ED and the Behavioral Health team. He was seen 04/29/18 for similar etiology and had 3 different MH providers. Today he stated he had a bad day yesterday. He was able to identify trigger being his daughter's custody (his mother has the daughter and patient doesn't get to see her). His way to cope was to cut his left forearm with a butter knife. Observed multiple superficial cuts which looked more red and raised versus scabbed. He was able to provide medications: Trazodone, Zyprexa, Haldol, Cogentin. He reported he sees Cynthia Robertson at [facility] for medication management, was just there a couple weeks ago, no significant medication changes besides some dosing up or down. He stated he has been doing therapy with Dr. James at [facility] for 2 months now. He was instructed to follow up with both medication management and therapy AT [facility] within the next week if not sooner and make them aware of his difficulty with the custody issue. He spent all morning and afternoon in the ED and when informed of plan of care was in agreement without qualms. Consulted with Dr. Cornejo regarding the management and care of patient. ED Physician in agreement with recommendations.
--- NOTE | 2018-09-14 22:17 | EKG REPORT ---
SEVERITY:- ABNORMAL ECG - SINUS RHYTHM LEFT POSTERIOR FASCICULAR BLOCK : Confirmed by: Roseline Ontiveros MD 14-Sep-2018 22:16:29
== END 2018-09-14 15:05 | disposition home or self-care (01) ==
LOC: ER 20:19
DX: R45.851 Suicidal ideations (principal); S51.812A Laceration without foreign body of left forearm, initial encounter; F17.200 Nicotine dependence, unspecified, uncomplicated; X78.1XXA Intentional self-harm by knife, initial encounter
CPT/HCPCS: 36415; 80053; 80307; 81001; 85025; 93005; 93010; 99285

== ENCOUNTER 2019-10-18 09:59 | Emergency (ER) | payer MEDICAID ==
[2019-10-18 10:08] VITALS: BP 133/88
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
[2019-10-18] MEDS ORDERED: NAPROXEN 250 MG TABLET PO ONE (11:31)
--- NOTE | 2019-10-18 11:45 | RADIOLOGY REPORT (SQ) ---
EXAM DESCRIPTION: SHOULDER LEFT 2 OR MORE VIEWS IMAGES COMPLETED DATE/TIME: 10/18/2019 11:22 am REASON FOR STUDY: injury COMPARISON: None. NUMBER OF VIEWS: Three views. TECHNIQUE: Internal rotation, external rotation, and Y view images acquired of the left shoulder. LIMITATIONS: None. FINDINGS: MINERALIZATION: Normal. BONES: No acute fracture. No worrisome bone lesions. JOINTS: No dislocation. VISUALIZED LUNGS AND RIBS: No pneumothorax. No rib fracture. SOFT TISSUES: No radiopaque foreign body. OTHER: No other significant finding. IMPRESSION: NEGATIVE STUDY OF THE LEFT SHOULDER. NO RADIOGRAPHIC EVIDENCE OF ACUTE INJURY. TECHNICAL DOCUMENTATION: JOB ID: [id number] 2010 [employer]- All Rights Reserved Reading location - IP/workstation name: [email or web address]
== END 2019-10-18 11:42 | disposition home or self-care (01) ==
LOC: ER 09:59
DX: S43.005A Unspecified dislocation of left shoulder joint, initial encounter (principal); W01.0XXA Fall on same level from slipping, tripping and stumbling without subsequent striking against object, initial encounter; F17.200 Nicotine dependence, unspecified, uncomplicated
CPT/HCPCS: 99283; 73030; J3490

== ENCOUNTER 2020-02-03 14:15 | Emergency (ER) | payer MEDICAID ==
--- NOTE | 2020-02-03 14:32 | ER Document Report ---
ED Medical Screen (RME) - General Chief Complaint: Fever Stated Complaint: FEVER Time Seen by Provider: 02/03/20 14:28 Primary Care Provider: SAMANTHA BAIN MD [Primary Care Provider] - Follow up as needed Mode of Arrival: Ambulatory Information source: Patient Notes: 34-year-old male presented to ED for shortness of breath nasal drainage and cough and sore throat. He states he is not had any fever or body aches. He does smoke 2 packs a day does not drink or do any drugs. Strep test flu test and covered test with a chest x-ray. I have greeted and performed a rapid initial assessment of this patient. A comprehensive ED assessment and evaluation of the patient, analysis of test results and completion of medical decision making process will be conducted by an additional ED providers. TRAVEL OUTSIDE OF THE [place] IN LAST 30 DAYS: No - Related Data Allergies/Adverse Reactions: No Known Allergies Allergy (Verified 06/14/17 14:31) Past Medical History Pulmonary Medical History: Reports: Hx Bronchitis Renal/ Medical History: Denies: Hx Peritoneal Dialysis Psychiatric Medical History: Reports: Hx Bipolar Disorder, Hx Depression, Hx Schizophrenia - Immunizations Hx Diphtheria, Pertussis, Tetanus Vaccination: Yes - 2009 Physical Exam - Vital signs Vitals: Temp Pulse Resp BP Pulse Ox 99.5 F 100 18 105/64 99 02/03/20 14:29 02/03/20 14:29 02/03/20 14:29 02/03/20 14:29 02/03/20 14:29 Course - Vital Signs Vital signs: Temp Pulse Resp BP Pulse Ox 99.5 F 100 18 105/64 99 02/03/20 14:29 02/03/20 14:29 02/03/20 14:29 02/03/20 14:29 02/03/20 14:29 Doctor's Discharge - Discharge Referrals: SAMANTHA BAIN MD [Primary Care Provider] - Follow up as needed
[2020-02-03 15:37] LABS: A TYPE INFLUENZA AG NEGATIVE (NEGATIVE); B INFLUENZA AG NEGATIVE (NEGATIVE)
--- NOTE | 2020-02-03 15:37 | RADIOLOGY REPORT (SQ) ---
EXAM DESCRIPTION: CHEST SINGLE VIEW IMAGES COMPLETED DATE/TIME: 02/03/2020 1:59 pm REASON FOR STUDY: cough COMPARISON: 07/22/2011 EXAM PARAMETERS: NUMBER OF VIEWS: One view. TECHNIQUE: Single frontal radiographic view of the chest acquired. RADIATION DOSE: NA LIMITATIONS: None. FINDINGS: LUNGS AND PLEURA: No opacities, masses or pneumothorax. No pleural effusion. MEDIASTINUM AND HILAR STRUCTURES: No masses. Contour normal. HEART AND VASCULAR STRUCTURES: Heart normal in size. Normal vasculature. BONES: No acute findings. HARDWARE: None in the chest. OTHER: No other significant finding. IMPRESSION: NO ACUTE RADIOGRAPHIC FINDING IN THE CHEST. TECHNICAL DOCUMENTATION: JOB ID: [id number] 2010 [employer]- All Rights Reserved Reading location - IP/workstation name: [email or web address]
--- NOTE | 2020-02-03 16:41 | ER Document Report ---
ED ENT - General Chief Complaint: Sore Throat Stated Complaint: FEVER Time Seen by Provider: 02/03/20 14:28 Primary Care Provider: SAMANTHA BAIN MD [COMMUNITY BASED STAFF] - Follow up as needed Mode of Arrival: Ambulatory Notes: 34-year-old man presenting to the emergency department with a complaint of sore throat and pain with swallowing which began last night. Apparently he denies ear pain or associated lightheadedness or dizziness. TRAVEL OUTSIDE OF THE [place] IN LAST 30 DAYS: No - Related Data Allergies/Adverse Reactions: No Known Allergies Allergy (Verified 06/14/17 14:31) Home Medications: Trazadone. anti depressent Past Medical History - General Information source: Patient - Social History Smoking Status: Current Every Day Smoker Chew tobacco use (# tins/day): No Frequency of alcohol use: None Drug Abuse: None Family History: Reviewed & Not Pertinent Pulmonary Medical History: Reports: Hx Bronchitis Renal/ Medical History: Denies: Hx Peritoneal Dialysis Psychiatric Medical History: Reports: Hx Bipolar Disorder, Hx Depression, Hx Schizophrenia - Immunizations Hx Diphtheria, Pertussis, Tetanus Vaccination: Yes - 2009 Review of Systems - Review of Systems Notes: Constitutional: Negative for fever. HENT: + sore throat. Eyes: Negative for visual changes. Cardiovascular: Negative for chest pain. Respiratory: Negative for shortness of breath. Gastrointestinal: Negative for abdominal pain, vomiting or diarrhea. Genitourinary: Negative for dysuria. Musculoskeletal: Negative for back pain. Skin: Negative for rash. Neurological: Negative for headaches, weakness or numbness. 10 point ROS negative except as marked above and in HPI. Physical Exam - Vital signs Vitals: Temp Pulse Resp BP Pulse Ox 99.5 F 100 18 105/64 99 02/03/20 14:29 02/03/20 14:29 02/03/20 14:29 02/03/20 14:29 02/03/20 14:29 - Notes Notes: PHYSICAL EXAMINATION: Physical Exam: General: Well-nourished well-developed 40-year-old man in no acute distress HEENT: NC/AT, pupils equal round and reactive to light, MM moist,nares clear, posterior pharyngeal erythema with no exudate. Right anterior cervical lymphadenopathy, tender, mobile. Neck: supple, no adenopathy, no masses. Good range of motion Lungs: clear, no wheezing, no rales no rhonchi CVS: Regular rate and rhythm no murmur gallop or rub Abdomen: Soft, active, nontender, no masses, no hepatosplenomegaly Ext: No edema, clubbing or cyanosis. Neuro: Alert and responsive, moving all 4 extremities on command, cranial nerves intact, no focal findings Skin: Intact no open lesions, no rash Course - Re-evaluation Re-evalutation: 02/03/20 16:37 Patient has a negative strep test, and no symptoms suggestive of coronavirus. He does have erythema on exam with lymphadenopathy. We will treat him empirically with oral antibiotics and he can follow-up as an outpatient. I explained this to the patient and he is in agreement with this plan. - Vital Signs Vital signs: Temp Pulse Resp BP Pulse Ox 99.5 F 100 18 105/64 99 02/03/20 14:40 02/03/20 14:29 02/03/20 14:29 02/03/20 14:29 02/03/20 14:29 - Laboratory Laboratory results interpreted by me: 02/03/20 16:38 I have reviewed laboratory data and used this information for the treatment dec isions regarding the patient. Discharge - Discharge Clinical Impression: Acute pharyngitis Qualifiers: Pharyngitis/tonsillitis etiology: unspecified etiology Qualified Code(s): J02.9 - Acute pharyngitis, unspecified Condition: Good Disposition: HOME, SELF-CARE Instructions: Sore Throat ([facility]) Additional Instructions: You were seen in the emergency department today with primary sore throat and pain with swallowing. Strep testing was negative and given your symptoms we will treat your acute sore throat with oral antibiotics. Prescriptions: Amoxicillin 1 tab PO TID #30 tab Referrals: SAMANTHA BAIN MD [COMMUNITY BASED STAFF] - Follow up as needed
[2020-02-03 17:17] VITALS: BP 130/76
== END 2020-02-03 17:55 | disposition home or self-care (01) ==
LOC: ER 14:15
DX: J02.9 Acute pharyngitis, unspecified (principal); R59.0 Localized enlarged lymph nodes; F17.200 Nicotine dependence, unspecified, uncomplicated; F32.9 Major depressive disorder, single episode, unspecified; Z79.899 Other long term (current) drug therapy; Z20.828 Contact with and (suspected) exposure to other viral communicable diseases
CPT/HCPCS: 99284; 87070; 87880; 87635; 87077; 87804; 71045; C9803